=== PATIENT | female | born 1955 | race Caucasian/White ===

== ENCOUNTER 2021-02-01 21:26 | Day surgery (SDC) | payer OTHER ==
[2021-02-01 23:34] LABS: BASO % 0.9 % (0-2.0); EOS % 2.6 % (0-4.5); HEMATOCRIT 43.4 % (32.4-45.2); HEMOGLOBIN 14.4 GM/dL (10.7-15.3); LYMPH % 27.3 % (8-40); MCH 26.4 pg (25.7-33.7); MCHC 33.3 g/dl (32.0-36.0); MEAN CELL VOLUME 79.3 fl (80-96); MEAN PLT VOLUME 8.6 fl (7.5-11.1); MONO % 8.4 % (3.8-10.2); NEUT % 60.8 % (42.8-82.8); PLATELET COUNT 294 10^3/uL (134-434); RBC 5.47 M/mm3 (3.60-5.2); RDW 14.2 % (11.6-15.6); WHITE BLOOD COUNT 9.5 K/mm3 (4.0-10.0)
[2021-02-01 23:44] LABS: INR 0.88 (0.83-1.09); PROTHROMBIN TIME (PATIENT) 10.3 SEC (9.7-13.0)
[2021-02-01 23:47] LABS: ACTIVATED PTT 35.2 SECONDS (25.2-36.5)
[2021-02-01 23:52] LABS: CALCIUM 9.4 mg/dL (8.5-10.1)
[2021-02-01 23:53] LABS: ALBUMIN 3.7 g/dl (3.4-5.0); BLOOD UREA NITROGEN 22.4 mg/dL (7-18)
[2021-02-01 23:57] LABS: CREATININE 0.7 mg/dL (0.55-1.3)
[2021-02-01 23:58] LABS: BILIRUBIN,TOTAL 0.4 mg/dL (0.2-1); TOT PROT 7.8 g/dl (6.4-8.2)
[2021-02-02] MEDS ORDERED: PROMETHAZINE HCL 25 MG/1 ML VIAL IVPUSH PRN (01:21)
[2021-02-02] MEDS ORDERED: ONDANSETRON 4 MG/2 ML VIAL IVPUSH PRN (01:21)
[2021-02-02] MEDS ORDERED: ACETAMINOPHEN 1000 MG/100 ML VIAL IVPB ONE ×2 (01:24→01:30)
[2021-02-02] MEDS ORDERED: LACTATED RINGERS SOLUTION 1,000 ML IV SCH (01:30)
[2021-02-02] MEDS ORDERED: MAG HYDROX/AL HYDROX/SIMETH 30 ML UNIT-DOSE CUP PO PRN (01:30)
[2021-02-02] MEDS ORDERED: DEXTROSE 5%-0.45% SALINE 1,000 ML IV SCH (01:30)
[2021-02-02] MEDS: ACETAMINOPHEN 325 MG TABLET (FP) PO PRN ×3 (03:15→20:10)
[2021-02-02 04:22] VITALS: BMI 28.9
[2021-02-02] MEDS: PANTOPRAZOLE 40 MG TABLET PO SCH ×2 (14:31→21:51)
[2021-02-03 08:35] LABS: BASO % 0.2 % (0-2.0); EOS % 0.8 % (0-4.5); HEMATOCRIT 41.6 % (32.4-45.2); HEMOGLOBIN 14.1 GM/dL (10.7-15.3); LYMPH % 34.1 % (8-40); MCH 26.9 pg (25.7-33.7); MCHC 33.9 g/dl (32.0-36.0); MEAN CELL VOLUME 79.4 fl (80-96); MONO % 6.3 % (3.8-10.2); NEUT % 58.6 % (42.8-82.8); PLATELET COUNT 294 10^3/uL (134-434); RBC 5.23 M/mm3 (3.60-5.2); RDW 14.3 % (11.6-15.6); WHITE BLOOD COUNT 11.6 K/mm3 (4.0-10.0)
[2021-02-03 08:58] LABS: CHLORIDE 116 mmol/L (98-107); SODIUM 148 mmol/L (136-145)
[2021-02-03 09:02] LABS: ALBUMIN 3.2 g/dl (3.4-5.0); GLUCOSE,RANDOM 99 mg/dL (74-106)
[2021-02-03 09:03] LABS: ANION GAP 9 MMOL/L (8-16); BLOOD UREA NITROGEN 16.7 mg/dL (7-18); CO2 24 mmol/L (21-32)
[2021-02-03 09:05] LABS: CREATININE 0.7 mg/dL (0.55-1.3); SGPT/ALT 25 U/L (13-61)
[2021-02-03 09:06] LABS: SGOT/AST 18 U/L (15-37)
[2021-02-03 09:07] LABS: BILIRUBIN,TOTAL 0.5 mg/dL (0.2-1)
[2021-02-03 09:08] LABS: ALK PHOS 78 U/L (45-117)
[2021-02-03] MEDS: PANTOPRAZOLE 40 MG TABLET PO SCH (09:45)
[2021-02-03 13:45] VITALS: BP 138/76; PULSE 66; TEMP 98.8
== END 2021-02-03 17:32 | disposition home or self-care (01) ==
LOC: JER 21:26 → JASU-SURG 23:14 → UNDOADMOB 23:27 → JERBED 23:27 → SUATTDRO 02-02 02:13 → JASUSAT 02-02 02:13 → JASU-SURG 02-02 02:13 → J6S 02-02 02:13 → JASU-SURG 02-02 02:41 → J6S 02-02 02:41 → JASUSAT 02-03 17:32
PROVIDERS: ATTEND Family Medicine
PROC: 3E033GC Introduction of Other Therapeutic Substance into Peripheral Vein, Percutaneous Approach (ICD-10-PCS; principal; 2021-02-02)
DX: T18.128A Food in esophagus causing other injury, initial encounter (principal)
CPT/HCPCS: 36415; 70490-TC; 80053; 85025; 85610; 85730; 86140; 86850; 86900; 86901; 93005; 93010; 94760; 99285-25; C9803; J0131; U0003; U0005

== ENCOUNTER 2021-06-17 20:04 | Emergency (ER) | payer OTHER ==
[2021-06-17 20:09] VITALS: TEMP 98; BMI 29.2
[2021-06-17 21:25] LABS: BASO % 0.7 % (0-2.0); EOS % 3.3 % (0-4.5); HEMATOCRIT 43.9 % (32.4-45.2); HEMOGLOBIN 14.6 GM/dL (10.7-15.3); MCH 26.5 pg (25.7-33.7); MCHC 33.3 g/dl (32.0-36.0); MEAN CELL VOLUME 79.5 fl (80-96); MEAN PLT VOLUME 8.8 fl (7.5-11.1); PLATELET COUNT 293 10^3/uL (134-434); RBC 5.52 M/mm3 (3.60-5.2); RDW 14.3 % (11.6-15.6); WHITE BLOOD COUNT 9.6 K/mm3 (4.0-10.0)
[2021-06-17 21:29] LABS: INR 0.95 (0.83-1.09); PROTHROMBIN TIME (PATIENT) 10.9 SEC (9.7-13.0)
[2021-06-17 21:31] LABS: ACTIVATED PTT 31.6 SECONDS (25.2-36.5)
[2021-06-17 21:41] LABS: ALBUMIN 3.7 g/dl (3.4-5.0); BLOOD UREA NITROGEN 18.8 mg/dL (7-18)
[2021-06-17 21:45] LABS: CREATININE 0.6 mg/dL (0.55-1.3)
[2021-06-17 21:46] LABS: BILIRUBIN,TOTAL 0.3 mg/dL (0.2-1); TOT PROT 7.3 g/dl (6.4-8.2)
[2021-06-17 22:48] VITALS: BP 156/88; PULSE 82
== END 2021-06-18 00:42 | disposition home or self-care (01) ==
LOC: JER 20:04
DX: R51.9 Headache, unspecified (principal); R03.0 Elevated blood-pressure reading, without diagnosis of hypertension
CPT/HCPCS: 36415; 70450-TC; 71046-TC-FY; 80053; 84484; 85025; 85610; 85730; 93005; 93010; 99285-25

== ENCOUNTER 2022-07-13 04:10 | Day surgery (SDC) | payer OTHER ==
[2022-07-12 10:17] VITALS: BMI 30.2
[2022-07-13 10:04] VITALS: TEMP 97.8
[2022-07-13 10:34] VITALS: BP 96/64; PULSE 65; RESP 13
== END 2022-07-13 10:51 | disposition home or self-care (01) ==
LOC: JASU-ENDO 04:10
PROVIDERS: ATTEND Internal Medicine Gastroenterology
PROC: 0DBL8ZX Excision of Transverse Colon, Via Natural or Artificial Opening Endoscopic, Diagnostic (ICD-10-PCS; 2022-07-13)
PROC: 0DBP8ZX Excision of Rectum, Via Natural or Artificial Opening Endoscopic, Diagnostic (ICD-10-PCS; 2022-07-13)
PROC: 0DBM8ZX Excision of Descending Colon, Via Natural or Artificial Opening Endoscopic, Diagnostic (ICD-10-PCS; 2022-07-13)
PROC: 0DBK8ZX Excision of Ascending Colon, Via Natural or Artificial Opening Endoscopic, Diagnostic (ICD-10-PCS; principal; 2022-07-13 09:30)
DX: Z12.11 Encounter for screening for malignant neoplasm of colon (principal); K64.8 Other hemorrhoids
CPT/HCPCS: 88305-TC

== ENCOUNTER 2022-08-10 04:25 | Day surgery (SDC) | payer OTHER ==
[2022-08-10 07:16] VITALS: TEMP 98
[2022-08-10 09:19] VITALS: RESP 13
[2022-08-10 09:36] VITALS: BP 119/75; PULSE 63
== END 2022-08-10 09:42 | disposition home or self-care (01) ==
LOC: JASU-ENDO 04:25
PROVIDERS: ATTEND Internal Medicine Gastroenterology
PROC: 0DB78ZX Excision of Stomach, Pylorus, Via Natural or Artificial Opening Endoscopic, Diagnostic (ICD-10-PCS; 2022-08-10)
PROC: 0DB68ZX Excision of Stomach, Via Natural or Artificial Opening Endoscopic, Diagnostic (ICD-10-PCS; 2022-08-10)
PROC: 0DB98ZX Excision of Duodenum, Via Natural or Artificial Opening Endoscopic, Diagnostic (ICD-10-PCS; principal; 2022-08-10 08:00)
DX: K29.50 Unspecified chronic gastritis without bleeding (principal); B96.81 Helicobacter pylori [H. pylori] as the cause of diseases classified elsewhere; I10 Essential (primary) hypertension
CPT/HCPCS: 88305-TC; 88342-TC

== ENCOUNTER 2022-12-08 07:08 | Emergency (ER) | payer OTHER ==
[2022-12-08 07:27] VITALS: BP 158/97; PULSE 71; RESP 18; TEMP 98.4
[2022-12-08] MEDS ORDERED: DIPHTH,PERTUSS(ACELL),TET 0.5 ML DISP.SYRIN IM ONE ×2 (08:15→08:21)
== END 2022-12-08 08:41 | disposition home or self-care (01) ==
LOC: JER 07:08 → JERFT 07:08
PROC: 0HQGXZZ Repair Left Hand Skin, External Approach (ICD-10-PCS; principal; 2022-12-08)
PROC: 3E0234Z Introduction of Serum, Toxoid and Vaccine into Muscle, Percutaneous Approach (ICD-10-PCS; 2022-12-08)
DX: S61.412A Laceration without foreign body of left hand, initial encounter (principal); W26.0XXA Contact with knife, initial encounter
CPT/HCPCS: 12001-25; 90471; 90715; 99282-25

== ENCOUNTER 2023-05-09 18:10 | Observation (INO) | payer OTHER ==
[2023-05-09 20:36] LABS: EPI CELLS 22 /uL (0-25.1); HYALINE CASTS 0 /uL (0-3.1); PH,URINE 5.5 (5.0-8.0); URINE APPEARANCE CLEAR; URINE BACTERIA 146 /uL (0-1359); URINE BILIRUBIN NEGATIVE (NEGATIVE); URINE COLOR YELLOW; URINE GLUCOSE (UA) NEGATIVE (NEGATIVE); URINE KETONE TRACE (NEGATIVE); URINE LEUK ESTERASE 2+ (NEGATIVE); URINE NITRITE NEGATIVE (NEGATIVE); URINE PROTEIN TRACE (NEGATIVE); URINE RBC 13 /uL (0-23.9); URINE UROBILINOGEN 0.2 mg/dL (0.2-1.0); URINE WBC 86 /uL (0-25.8)
[2023-05-09 20:39] LABS: BASO % 0.4 % (0-2.0); EOS % 2.7 % (0-4.5); HEMATOCRIT 42.7 % (32.4-45.2); HEMOGLOBIN 13.8 GM/dL (10.7-15.3); LYMPH % 22.2 % (8-40); MCH 25.9 pg (25.7-33.7); MCHC 32.4 g/dl (32.0-36.0); MEAN CELL VOLUME 79.9 fl (80-96); MEAN PLT VOLUME 8.5 fl (7.5-11.1); MONO % 8.4 % (3.8-10.2); NEUT % 66.3 % (42.8-82.8); PLATELET COUNT 283 10^3/uL (134-434); RBC 5.34 M/mm3 (3.60-5.2); RDW 15.2 % (11.6-15.6); WHITE BLOOD COUNT 12.5 K/mm3 (4.0-10.0)
[2023-05-09 21:40] LABS: POTASSIUM 4.7 mmol/L (3.5-5.1)
[2023-05-09 21:42] LABS: CALCIUM 8.9 mg/dL (8.5-10.1)
[2023-05-09 21:43] LABS: ALBUMIN 3.4 g/dl (3.4-5.0); BLOOD UREA NITROGEN 14.7 mg/dL (7-18); MAGNESIUM 2.3 mg/dL (1.8-2.4)
[2023-05-09 21:46] LABS: CREATININE 0.8 mg/dL (0.55-1.3); PHOSPHOROUS 3.4 mg/dL (2.5-4.9)
[2023-05-09 21:47] LABS: BILIRUBIN,TOTAL 0.5 mg/dL (0.2-1); TOT PROT 7.2 g/dl (6.4-8.2)
[2023-05-09] MEDS: LACTATED RINGERS SOLUTION 1000 ML INFUS.BAG IV ONE (23:06)
[2023-05-10] MEDS ORDERED: ACETAMINOPHEN 1000 MG/100 ML BAG IVPB PRN (00:25)
[2023-05-10] MEDS: SODIUM CHLORIDE 1,000 ML IV SCH (00:39)
[2023-05-10] MEDS ORDERED: CEFTRIAXONE 1 GM/50 ML BAG ONE (00:50)
[2023-05-10] MEDS: CEFTRIAXONE 1,000 MG in DEXTROSE 5%-WATER - 50 ML IVPB ONE (01:04)
[2023-05-10] MEDS: PANTOPRAZOLE 40 MG TABLET PO SCH (10:03)
[2023-05-10] MEDS: amLODIPine BESYLATE 5 MG TABLET (FP) PO SCH (10:03)
[2023-05-10] MEDS: LISINOPRIL 5 MG TABLET PO SCH (10:03)
[2023-05-10 15:50] LABS: BASO % 0.3 % (0-2.0); EOS % 4.3 % (0-4.5); HEMATOCRIT 38.1 % (32.4-45.2); HEMOGLOBIN 12.9 GM/dL (10.7-15.3); LYMPH % 26.2 % (8-40); MCH 26.6 pg (25.7-33.7); MCHC 33.8 g/dl (32.0-36.0); MEAN CELL VOLUME 78.7 fl (80-96); MEAN PLT VOLUME 8.6 fl (7.5-11.1); MONO % 11.1 % (3.8-10.2); NEUT % 58.1 % (42.8-82.8); PLATELET COUNT 263 10^3/uL (134-434); RBC 4.84 M/mm3 (3.60-5.2); RDW 15.2 % (11.6-15.6); WHITE BLOOD COUNT 6.5 K/mm3 (4.0-10.0)
[2023-05-10 16:06] LABS: POTASSIUM 3.5 mmol/L (3.5-5.1)
[2023-05-10 16:07] LABS: CALCIUM 8.7 mg/dL (8.5-10.1)
[2023-05-10 16:08] LABS: ALBUMIN 2.9 g/dl (3.4-5.0); BLOOD UREA NITROGEN 9.8 mg/dL (7-18)
[2023-05-10 16:11] LABS: CREATININE 0.7 mg/dL (0.55-1.3)
[2023-05-10 16:13] LABS: BILIRUBIN,TOTAL 0.3 mg/dL (0.2-1); TOT PROT 6.1 g/dl (6.4-8.2)
[2023-05-10 16:32] LABS: ERYTHROCYTE SEDIMENTATION RATE 19 mm/hr (0-30)
[2023-05-11] MEDS ORDERED: ACETAMINOPHEN 325 MG TABLET (FP) PO PRN (00:22)
[2023-05-11 07:03] LABS: BASO % 0.4 % (0-2.0); EOS % 4.3 % (0-4.5); HEMOGLOBIN 12.4 GM/dL (10.7-15.3); LYMPH % 32.4 % (8-40); MCH 26.1 pg (25.7-33.7); MCHC 32.5 g/dl (32.0-36.0); MEAN CELL VOLUME 80.2 fl (80-96); MEAN PLT VOLUME 8.6 fl (7.5-11.1); MONO % 12.7 % (3.8-10.2); NEUT % 50.2 % (42.8-82.8); PLATELET COUNT 275 10^3/uL (134-434); RBC 4.74 M/mm3 (3.60-5.2)
[2023-05-11 07:08] LABS: INR 1.05 (0.83-1.09); PROTHROMBIN TIME (PATIENT) 12.2 SEC (9.7-13.0)
[2023-05-11 07:14] LABS: POTASSIUM 3.9 mmol/L (3.5-5.1)
[2023-05-11 07:17] LABS: ALBUMIN 2.7 g/dl (3.4-5.0); BLOOD UREA NITROGEN 11.2 mg/dL (7-18); CALCIUM 8.1 mg/dL (8.5-10.1)
[2023-05-11 07:19] LABS: BLOOD UREA NITROGEN 11.3 mg/dL (7-18); CALCIUM 8.3 mg/dL (8.5-10.1)
[2023-05-11 07:22] LABS: BILIRUBIN,TOTAL 0.4 mg/dL (0.2-1); TOT PROT 5.6 g/dl (6.4-8.2)
[2023-05-11 07:23] LABS: CREATININE 0.6 mg/dL (0.55-1.3)
[2023-05-11 07:24] LABS: CREATININE 0.7 mg/dL (0.55-1.3)
[2023-05-11] MEDS ORDERED: PANTOPRAZOLE 40 MG TABLET PO SCH (10:00)
[2023-05-11] MEDS ORDERED: CEFTRIAXONE 1 GM in DEXTROSE 5%-WATER - 50 ML IVPB SCH (10:00)
[2023-05-11] MEDS: PIPERACILLIN/TAZOB 3.375 GM 3.375 GM in DEXTROSE 5%-WATER - 50 ML IVPB SCH (10:01)
[2023-05-11 10:36] VITALS: RESP 20
[2023-05-11 15:24] VITALS: BP 101/68; PULSE 78; TEMP 98.2
== END 2023-05-11 18:42 | disposition home or self-care (01) ==
LOC: JER 18:10 → JERBED 23:51 → J4W 05-10 02:51
PROVIDERS: ADMIT Internal Medicine; ATTEND Family Medicine
PROC: 3E0337Z Introduction of Electrolytic and Water Balance Substance into Peripheral Vein, Percutaneous Approach (ICD-10-PCS; principal; 2023-05-09)
PROC: 3E03329 Introduction of Other Anti-infective into Peripheral Vein, Percutaneous Approach (ICD-10-PCS; 2023-05-09)
DX: K52.9 Noninfective gastroenteritis and colitis, unspecified (principal); K21.9 Gastro-esophageal reflux disease without esophagitis; R07.9 Chest pain, unspecified; K76.0 Fatty (change of) liver, not elsewhere classified; R42 Dizziness and giddiness; R55 Syncope and collapse; R11.10 Vomiting, unspecified; K76.9 Liver disease, unspecified; N20.0 Calculus of kidney; K80.20 Calculus of gallbladder without cholecystitis without obstruction
CPT/HCPCS: 96365; 96367; Z9049; 36415; 71045-TC-FY; 74177-TC; 76705-TC; 80048; 80053; 81003; 82550; 82728; 83540; 83550; 83735; 84100; 84484; 85025; 85610; 85651; 86140; 86704; 86708; 86803; 87045; 87046; 87086; 87205; 87209; 87324; 87338; 87340; 87449; 87493; 87517; 93005; 93010; 99285-25; G0378; Q9967

== ENCOUNTER 2023-07-24 04:16 | Day surgery (SDC) | payer OTHER ==
[2023-07-19 16:18] VITALS: BMI 29.9
[2023-07-24 10:46] VITALS: TEMP 97.6
[2023-07-24 11:16] VITALS: BP 113/70; PULSE 64; RESP 18
== END 2023-07-24 11:35 | disposition home or self-care (01) ==
LOC: JASU-ENDO 04:16
PROVIDERS: ATTEND Internal Medicine Gastroenterology
PROC: 0DBN8ZX Excision of Sigmoid Colon, Via Natural or Artificial Opening Endoscopic, Diagnostic (ICD-10-PCS; principal; 2023-07-24 10:00)
DX: K63.89 Other specified diseases of intestine (principal); R19.4 Change in bowel habit; R19.7 Diarrhea, unspecified; K64.8 Other hemorrhoids
CPT/HCPCS: 88305-TC

== ENCOUNTER 2023-12-17 04:06 | Day surgery (SDC) | payer OTHER ==
[2023-12-14 13:43] VITALS: BMI 29.9
[2023-12-17] MEDS ORDERED: MIDAZOLAM HCL 2 MG/2 ML SINGLE DOSE VIAL ONE (10:46)
[2023-12-17] MEDS ORDERED: DEXAMETHASONE SOD PHOSPHATE 4 MG/1 ML VIAL ONE (10:56)
[2023-12-17] MEDS ORDERED: ONDANSETRON 4 MG/2 ML VIAL ONE (10:56)
[2023-12-17 12:47] VITALS: RESP 20
[2023-12-17 13:54] VITALS: PULSE 76
[2023-12-17 13:55] VITALS: BP 118/69; TEMP 97
== END 2023-12-17 13:56 | disposition home or self-care (01) ==
LOC: JASU-SURG 04:06
PROVIDERS: ATTEND Urology
PROC: 0TF7XZZ Fragmentation in Left Ureter, External Approach (ICD-10-PCS; principal; 2023-12-17 10:49)
DX: N20.0 Calculus of kidney (principal)